=== PATIENT | female | born 1980 | race Caucasian/White ===

== ENCOUNTER 2021-01-29 10:45 | Outpatient (CLI) | payer OTHER | END 2021-01-29 10:46 | disposition home or self-care (01) | LOC: DTY/OP 10:45 | PROVIDERS: ATTEND Family Medicine | DX: Z01.818 Encounter for other preprocedural examination (principal); E66.01 Morbid (severe) obesity due to excess calories; Z68.44 Body mass index [BMI] 60.0-69.9, adult | CPT/HCPCS: 97802 ==

== ENCOUNTER 2021-02-12 11:28 | Outpatient (CLI) | payer OTHER ==
[2021-02-13 01:24] LABS: SARS-CoV-2 PCR by NAA Not Detected (NotDetected)
== END 2021-02-12 11:29 | disposition home or self-care (01) ==
LOC: LABBT 11:28
PROVIDERS: ATTEND Specialist
DX: Z01.812 Encounter for preprocedural laboratory examination (principal); E28.2 Polycystic ovarian syndrome; M25.562 Pain in left knee; M25.561 Pain in right knee; M25.552 Pain in left hip; G89.29 Other chronic pain; M25.551 Pain in right hip; M54.42 Lumbago with sciatica, left side; M06.08 Rheumatoid arthritis without rheumatoid factor, vertebrae; K21.9 Gastro-esophageal reflux disease without esophagitis; E66.01 Morbid (severe) obesity due to excess calories; Z20.822 Contact with and (suspected) exposure to COVID-19
CPT/HCPCS: 87635; U0003; U0005

== ENCOUNTER 2021-02-12 11:30 | Inpatient (IN) | payer OTHER ==
[2021-02-16 12:54] VITALS: BMI 62.4
[2021-02-17] MEDS ORDERED: Ketorolac Tromethamine 30 MG/ML VIAL ONE (07:59)
[2021-02-17] MEDS ORDERED: Heparin 5,000 UNITS/ML VIAL ONE (07:59)
[2021-02-17] MEDS ORDERED: Scopolamine 1.5 mg/72 hour Patch ONE (07:59)
[2021-02-17] MEDS ORDERED: cefOXitin Sodium/Dextrose 2 GM/50 ML BAG ONE ×2 (08:00→09:02)
[2021-02-17] MEDS ORDERED: Acetaminophen 500 MG TAB ONE (08:00)
[2021-02-17] MEDS ORDERED: Morphine 2 MG/ML VIAL ONE (09:23)
[2021-02-17] MEDS ORDERED: Fentanyl 100 MCG/2 ML VIAL ONE ×2 (09:23→13:01)
[2021-02-17] MEDS ORDERED: Midazolam HCl 2 mg/2 ml Vial ONE ×2 (09:23→10:15)
[2021-02-17] MEDS ORDERED: Bupivacaine 0.25% HCL 30 ML VIAL ONE (09:28)
[2021-02-17] MEDS ORDERED: Lidocaine 1% w/Epinephrine 1:100K 20 ML VIAL ONE (09:28)
[2021-02-17] MEDS ORDERED: PROPOFOL 200 MG/20 ML VIAL ONE (09:40)
[2021-02-17] MEDS ORDERED: Succinylcholine 200 MG/10 ml SYRINGE FS ONE (09:40)
[2021-02-17] MEDS ORDERED: Dexamethasone 20 MG/5 ML VIAL ONE (09:40)
[2021-02-17] MEDS ORDERED: Ondansetron PF 4 MG/2 ML Vial ONE (09:40)
[2021-02-17] MEDS ORDERED: diphenhydrAMINE 50 MG/ML VIAL ONE (09:40)
[2021-02-17] MEDS ORDERED: Rocuronium Bromide 10 MG/ML (10ML VIAL) ONE (09:40)
[2021-02-17] MEDS ORDERED: Morphine 4 MG/ML VIAL SLOW IVP PRN (09:55)
[2021-02-17] MEDS ORDERED: Morphine 2 MG/ML VIAL SLOW IVP PRN (09:55)
[2021-02-17] MEDS ORDERED: diphenhydrAMINE 50 MG/ML VIAL IVP PRN (09:55)
[2021-02-17] MEDS ORDERED: Ondansetron PF 4 MG/2 ML Vial IVP PRN (09:55)
[2021-02-17] MEDS ORDERED: hydrALAZINE 20 MG/ML VIAL SLOW IVP PRN (09:55)
[2021-02-17] MEDS ORDERED: Diazepam 2 MG TAB PO PRN (09:58)
[2021-02-17] MEDS ORDERED: Non-Formulary Item 1 EACH (Ventolin Hfa Inhaler [Ventolin Hfa Inhaler] 60 PUFF Aer) INH PRN (09:58)
[2021-02-17] MEDS ORDERED: Ketamine 50 MG/ML (10ML VIAL) ONE (10:16)
[2021-02-17] MEDS ORDERED: SUGAMMADEX SODIUM 200 MG/2 ML VIAL ONE (10:16)
[2021-02-17] MEDS ORDERED: Sodium Chloride 0.9% (PF) 10 ML VIAL FS PRN (11:30)
[2021-02-17] MEDS ORDERED: Morphine Sulfate 2 MG/ML SYRINGE SLOW IVP PRN (11:30)
[2021-02-17] MEDS ORDERED: Promethazine HCl 25 MG/ML VIAL IM PRN (11:30)
[2021-02-17] MEDS ORDERED: Ketorolac Tromethamine 30 MG/ML VIAL IVP PRN (11:30)
[2021-02-17] MEDS ORDERED: Promethazine HCl 25 MG/ML VIAL SLOW IVP PRN (11:30)
[2021-02-17] MEDS ORDERED: Ondansetron HCl/PF 4 MG/2 ML Vial IVP PRN (11:30)
[2021-02-17] MEDS ORDERED: HYDROmorphone 2 MG/ML VIAL SLOW IVP PRN (11:30)
[2021-02-17] MEDS ORDERED: Promethazine HCl 25 MG/ML VIAL ONE (12:17)
[2021-02-17] MEDS ORDERED: Albuterol Sulfate 1.25 MG/3 ML NEB INH PRN (13:20)
[2021-02-17] MEDS ORDERED: Labetalol HCl 100 MG/20 ML VIAL ONE (13:26)
[2021-02-17] MEDS: Ketorolac Tromethamine 30 MG/ML VIAL IVP SCH ×2 (16:04→17:46)
[2021-02-17] MEDS: Lactated Ringer's 1,000 ML IV SCH ×2 (16:06→21:02)
[2021-02-17] MEDS: Gabapentin 300 MG CAP PO SCH (16:06)
[2021-02-17] MEDS ORDERED: DULoxetine 60 MG CAP PO SCH (21:00)
[2021-02-17] MEDS ORDERED: Enoxaparin Sodium 40 MG/0.4 ML SYRINGE SC SCH (21:00)
[2021-02-17] MEDS ORDERED: Gabapentin 300 MG CAP PO SCH (21:00)
[2021-02-18] MEDS: Ketorolac Tromethamine 30 MG/ML VIAL IVP SCH ×3 (00:42→11:30)
[2021-02-18] MEDS: Lactated Ringer's 1,000 ML IV SCH (05:44)
[2021-02-18 05:55] LABS: #Neutrophils 12.7 thou/uL (1.40-6.50); %Basophils 0.1 % (0.0-1.0); %Eosinophils 0.1 % (0.0-10.0); %Lymphocytes 6.9 % (21.0-51.0); %Monocytes 6.7 % (0.0-10.0); %Neutrophils 86.2 % (42.0-75.0); Hemoglobin 12.3 g/dL (12.0-16.0); Mean Corpuscular HGB CONC 33.7 g/dL (32.0-36.0); Mean Corpuscular Hemoglobin 30.5 pg (27.0-31.0); Mean Corpuscular Volume 90.7 fL (78.0-98.0); Mean Platelet Volume 7.6 fL (7.4-10.4); Platelet Count 295 thou/uL (130-400); RBC Distribution Width 13.1 % (11.5-14.5); Red Blood Cell (RBC) Count 4.03 mill/uL (4.20-5.40); White Blood Cell (WBC) Count 14.7 thou/uL (4.8-10.8)
[2021-02-18 06:16] LABS: Anion Gap 21 mmol/L (10-20); BUN (Urea Nitrogen) 14 mg/dL (7.0-18.7); Calc. Creatinine Clearance 220 mL/min (70-130); Calcium 8.9 mg/dL (7.8-10.44); Carbon Dioxide 14 mmol/L (22-29); Chloride 106 mmol/L (98-107); Glucose 137 mg/dL (70-105); Potassium 4.5 mmol/L (3.5-5.1); Sodium 136 mmol/L (136-145)
[2021-02-18] MEDS: Hydrocodone-Acetamin 15 ML UDCUP PO PRN ×2 (08:47→12:47)
[2021-02-18] MEDS: Gabapentin 300 MG CAP PO SCH (08:49)
[2021-02-18] MEDS ORDERED: Bupropion 150 MG XL TAB PO SCH (09:00)
[2021-02-18] MEDS ORDERED: Upadacitinib [Rinvoq] 15 MG Tab.Er.24h PO SCH (09:00)
[2021-02-18] MEDS ORDERED: Multivitamin W/ Minerals 1 TAB PO SCH (09:00)
[2021-02-18] MEDS ORDERED: Pantoprazole 40 MG VIAL IVP SCH (09:00)
[2021-02-18 12:32] VITALS: BP 124/79; TEMP 97.9
== END 2021-02-18 13:30 | disposition home or self-care (01) | DRG 621 ==
LOC: SURG A 02-17 07:42 → EDSTATUS 02-17 11:30 → SJJU 02-17 14:32
PROVIDERS: ADMIT Specialist; ATTEND Specialist
PROC: 0DB64Z3 Excision of Stomach, Percutaneous Endoscopic Approach, Vertical (ICD-10-PCS; principal; 2021-02-17)
PROC: 0DJ68ZZ Inspection of Stomach, Via Natural or Artificial Opening Endoscopic (ICD-10-PCS; 2021-02-17)
DX: E66.01 Morbid (severe) obesity due to excess calories (principal); E28.2 Polycystic ovarian syndrome; M25.561 Pain in right knee; M25.562 Pain in left knee; M25.552 Pain in left hip; G89.29 Other chronic pain; M25.551 Pain in right hip; M54.42 Lumbago with sciatica, left side; M06.08 Rheumatoid arthritis without rheumatoid factor, vertebrae; N27.0 Small kidney, unilateral; K21.00 Gastro-esophageal reflux disease with esophagitis, without bleeding; Z20.822 Contact with and (suspected) exposure to COVID-19; F32.9 Major depressive disorder, single episode, unspecified; Z90.49 Acquired absence of other specified parts of digestive tract; Z88.8 Allergy status to other drugs, medicaments and biological substances; Z68.44 Body mass index [BMI] 60.0-69.9, adult
CPT/HCPCS: 36415; 36416; 80048; 85025; 88307; 90471; 90732; C9113; G0009; J0694; J1100; J1200; J1644; J1650; J1885; J2250; J2270; J2405; J2550; J2704; J3010; S0020

== ENCOUNTER 2021-02-26 10:38 | Outpatient (CLI) | payer OTHER ==
[~2021-02-26 10:38] MED LIST: Iopamidol 370 76% 100 ML VIAL ONE; Iopamidol 370 76% 50 ML VIAL FS ONE
== END 2021-02-26 10:39 | disposition home or self-care (01) ==
LOC: CT 10:38
PROVIDERS: ATTEND Specialist
DX: R10.9 Unspecified abdominal pain (principal); Z98.890 Other specified postprocedural states; J90 Pleural effusion, not elsewhere classified
CPT/HCPCS: 74160; Q9967